=== PATIENT | female | born 1995 ===

== ENCOUNTER 2024-11-27 20:33 | Emergency (ER) | payer OTHER, SELFPAY ==
--- NOTE | 2024-11-27 | ECG_ITS ---
Test Reason : ABDOMINAL PAIN Blood Pressure : */* mmHG Vent. Rate : 71 BPM Atrial Rate : 71 BPM P-R Int : 186 ms QRS Dur : 86 ms QT Int : 382 ms P-R-T Axes : 39 59 26 degrees QTcB Int : 415 ms Normal sinus rhythm Normal ECG No previous ECGs available Referred By: Generic ED Physician Electronically Signed By: NAYELY LIU
--- NOTE | ~2024-11-27 | CT_ITS ---
CLINICAL HISTORY: R flank pain, eval for stone CT abdomen and pelvis without contrast Comparison: None provided Findings: The lung bases are clear. The patient is status post cholecystectomy. There is mild hepatosplenomegaly. No focal liver lesions are noted. There is no biliary ductal dilatation. The rest of the solid organs are unremarkable. There is no evidence of urolithiasis or obstructive uropathy. No bowel obstruction, pneumoperitoneum, or pneumatosis. There is a 2.4 cm right ovarian cyst. An IUD is present. The bones are intact. IMPRESSION: 1. There is a 2.4 cm right ovarian cyst. 2. Mild hepatosplenomegaly. 3. No evidence of urolithiasis or obstructive uropathy. This document has been electronically signed by: Scout Cuevas MD on 11/28/2024 05:14:56
[2024-11-27 21:13] VITALS: BP 137/88; PULSE 70; RESP 15; TEMP 36.7; O2SAT 100; BMI 35.3
[2024-11-27 21:57] LABS: MANUAL DIFF FLAG NO
[2024-11-27 21:58] LABS: Hematocrit 34.7 % (37.0-47.0); Hemoglobin 11.4 g/dl (12.0-16.0); Imm Gran Abs Auto 0.05 X10*3/uL (0.00-0.03); Imm Gran Pct Auto 0.5 % (0.0-0.4); Lymphocytes Absolute Auto 1.0 X10*3/uL (1.2-4.9); Mean Corpuscular HGB Conc 32.9 g/dl (31.0-35.0); Mean Corpuscular Hemoglobin 25.8 pg (27.0-33.0); Mean Corpuscular Volume 78.5 fL (80.0-98.0); NRBC Abs Auto 0.000 X10*3/uL (0.0-0.012); NRBC Pct Auto 0.0 /100WBC (0.0-0.2); Platelet Count 213 X10*3/uL (160-400); Red Blood Count 4.42 X10*6/uL (4.20-5.50); White Blood Count 10.4 X10*3/uL (4.8-10.8)
[2024-11-27 22:14] LABS: Alanine Aminotransferase 53 U/L (0-31); Albumin Level 4.5 g/dL (3.5-5.0); Alkaline Phosphatase 75 U/L (39-117); Anion Gap 13 (12-20); Aspartate Amino Transferase 48 U/L (5-31); Blood Urea Nitrogen 11 mg/dL (9-16); Calcium 9.2 mg/dL (8.4-10.2); Carbon Dioxide 26 mmol/L (22-29); Chloride 104 mmol/L (96-108); Creatinine Clr Calc Pharmacy 72.2; Estimated Glomerular Filt Rate 54; Lipase 15 U/L (8-78); Potassium 3.6 mmol/L (3.3-5.1); Sodium 139 mmol/L (135-145); Total Protein 7.5 g/dL (6.5-8.0)
--- OUTSIDE RECORDS SUMMARY | 2024-11-28 01:57 | XMS_ITS | Clinical Summary ---
Author Organization [facility] Address [address] [place] [address] Care Team Providers Care Engineering Manager Electronics Name Role Phone Unavailable Primary Care Provider Unavailabl e Social History Tobacco Use Types Packs/Day Years Used Date Smoking Tobacco: Never Assessed Comments Unknown Sex and Gender Information Value Date Recorded Sex Assigned at Not on file Legal Sex Female 1:51 PM EST Gender Identity Not on file Sexual Orientation Not on file Plan of Treatment Health Maintenance Due Date Last Done Comments DTaP,Tdap,and Td Vaccines (1 - Tdap) 2013 Hepatitis B Vaccines (1 of 3 - 19+ 3-dose series) 2013 Cervical Cancer Screening: P ap Smear 07/24/2015 COVID-19 Vaccine (1 - 2023-2 5 season) 2023 Depression Screening 04/04/2024 Influenza Vaccine (#1) 2024 HIB Vaccines Aged Out No longer eligi ble based on patient's age to complete this topic HPV Vaccines Aged Out No longer eligi ble based on patient's age to complete this topic Hepatitis A Vaccines Aged Out No long er eligible based on patient's age to complete this topic IPV Vaccines Aged Out No longer eligi ble based on patient's age to complete this topic MMR Vaccines Aged Out No longer eligi ble based on patient's age to complete this topic Meningococcal ACWY Vaccine Aged Out N o longer eligible based on patient's age to complete this topic Meningococcal B Vaccine Aged Out No l onger eligible based on patient's age to complete this topic Pneumococcal Vaccine: Pediat rics (0 to 5 Years) and At-Risk Patients (6 to 49 Years) Aged Out No longer eligible b ased on patient's age to complete this topic RSV Immunization Patients Un jacquie 20 months Aged Out No longer eligible b ased on patient's age to complete this topic Varicella Vaccines Aged Out No longer eligible based on patient's age to complete this topic
[2024-11-28 03:15] VITALS: BP 117/69; PULSE 65; RESP 16; TEMP 36.7; O2SAT 98
[2024-11-28 03:24] LABS: Appearance Urine Cloudy; Glucose Urine UA Negative (Negative); PH 7.0 (5.0-9.0); Specific Gravity - Urine 1.025 (1.005-1.025); UMIC TRIGGER UACC YES
[2024-11-28 03:39] LABS: UACC Culture Trigger YES
--- NOTE | 2024-11-28 03:53 | ED_ITS ---
HPI - Abdominal Pain General Chief Complaint: Abdominal Pain Stated Complaint: pain in gallbladder Time Seen by Provider: 11/28/24 03:51 Source: patient Mode of arrival: ambulatory Limitations: no limitations History of Present Illness ED Provider: Dr. Aishwarya Kelly HPI narrative: 29-year-old female with history of cholecystectomy, recent diagnosis of UTI currently on cefuroxime presenting with right flank pain radiating into her right upper quadrant ongoing for the last hour prior to arrival. Describes nausea but no vomiting. Denies associated fevers, bowel changes, chest pain or difficulty breathing. No cough or cold-type symptoms. Urinary symptoms are improving. No further dysuria or hematuria. Has been taking her antibiotics as prescribed. Related Data Previous Rx's ?Medication ?Instructions ?Recorded cefuroxime axetil 250 mg tablet 250 mg PO Q12H 7 days #14 tabs 11/28/24 dicyclomine 20 mg tablet 20 mg PO TID #10 tabs ondansetron 4 mg disintegrating 4 mg PO Q8H PRN nausea and 11/28/24 tablet vomiting #10 tabs Allergies Allergy/AdvReac Type Severity Reaction Status Date / Time No Known Allergies Allergy Verified 11/27/24 21:15 Review of Systems Review of Systems as per HPI, full review of systems performed and negative but for the above mentioned pertinent positives and negatives. Physical Exam ED Exam Exam: GENERAL: Ill-Appearing, appears uncomfortable. SKIN: Normal skin color for ethnicity, warm, dry, no rashes noted. HEENT:? Normocephalic, atraumatic, no stridor, dry mucous membranes, dentition intact, EOMI. NECK: Soft, supple, full ROM, midline structures nontender, no step-offs, no deformities, no lymphadenopathy. CHEST: Heart regular rhythm, no murmurs, symmetric chest rise and fall. PULMONARY: Clear to auscultation bilaterally, diminished at the bases, no labored breathing, no wheezes/rhales/rhonchi. ABDOMINAL: Soft, nondistended, R flank tenderness to palpation without guarding, positive bowel sounds in all quadrants. : Deferred. MUSCULOSKELETAL: Normal tone, full range of motion, no deformities, no peripheral edema. NEURO: Alert and oriented x3, CN II through XII intact, equal strength and sensation bilateral upper and lower extremities, no focal neurologic deficits.? PSYCHIATRIC: Flat affect, fluid speech, good eye contact and appropriate demeanor. Vital Signs: Vital Signs - 24 hr 11/27/24 21:13 11/28/24 03:15 Temperature 98.1 F 98.1 F Pulse Rate 70 65 Respiratory Rate 15 16 Blood Pressure 137/88 117/69 Pulse Oximetry 100 98 Oxygen Delivery Method Room Air Room Air BMI result Body Mass Index 35.3 Course Reevaluation(s) Reevaluation #1: Patient's urine culture resulted growing E coli that is sensitive to cephalosporins. The patient was treated with cefuroxime, no change to treatment plan necessary Time: 09:16 Medical Decision Making Medical Decision Making [facility] Narrative: Patient presented today with a chief complaint of flank pain.? Differential diagnosis is certainly broad and includes but is not limited to kidney stone, infection such as pyelonephritis, vascular pathology, among many others.? Patient is currently taking cephalosporin which her urine is sensitive to. Preliminary culture shows E coli growing. No evidence of pyelonephritis or kidney stones seen on imaging. Encouraged continued use of cefuroxime. Using shared decision making, plan for discharge home to follow-up with primary care and/or specialist. Patient understands and agrees with plan for discharge. Discharged home in stable condition. Differential Diagnosis Differential Diagnoses: The differential diagnosis associated with the presentation includes (as above) Admission/Observation Consideration of admission/observation: Escalation of care including admission/observation considered Lab Data [facility] Lab Attestation statement: I reviewed the patient's lab results. 11/27/24 21:51 11/27/24 21:51 Labs: Lab Results 11/27/24 11/28/24 Range/Units 21:51 03:16 WBC 10.4 (4.8-10.8) X10*3/uL RBC 4.42 (4.20-5.50) X10*6/uL Hgb 11.4 L (12.0-16.0) g/dl Hct 34.7 L (37.0-47.0) % MCV 78.5 L (80.0-98.0) fL MCH 25.8 L (27.0-33.0) pg MCHC 32.9 (31.0-35.0) g/dl RDW 15.9 (11.0-16.0) % Plt Count 213 (160-400) X10*3/uL MPV 10.4 (9.4-12.3) fL Immature Gran % (Auto) 0.5 H (0.0-0.4) % Neut % (Auto) 83.0 H (45-73) % Lymph % (Auto) 9.7 L (20-40) % Wirt % (Auto) 5.9 (2-11) % Eos % (Auto) 0.6 (0-4) % Baso % (Auto) 0.3 (0-2) % Lymph # (Auto) 1.0 L (1.2-4.9) X10*3/uL Wirt # (Auto) 0.6 (0.1-1.2) X10*3/uL Eos # (Auto) 0.1 (0.0-0.4) X10*3/uL Baso # (Auto) 0.0 (0.0-0.2) X10*3/uL Abs Immat Gran (auto) 0.05 H (0.00-0.03) X10*3/uL Absolute Neuts (auto) 8.7 H (2.0-8.3) x10*3/uL Absolute Nucleated RBC 0.000 (0.0-0.012) X10*3/uL Nucleated RBC % (auto) 0.0 (0.0-0.2) /100WBC Sodium 139 (135-145) mmol/L Potassium 3.6 (3.3-5.1) mmol/L Chloride 104 (96-108) mmol/L Carbon Dioxide 26 (22-29) mmol/L Anion Gap 13 (12-20) BUN 11 (9-16) mg/dL Creatinine 1.17 (0.5-1.4) mg/dL Estim Creat Clear Calc 72.2 Estimated GFR 54 Random Glucose 128 H (60-115) mg/dL Calcium 9.2 (8.4-10.2) mg/dL Total Bilirubin 0.3 (0.0-1.0) mg/dL AST 48 H (5-31) U/L ALT 53 H (0-31) U/L Alkaline Phosphatase 75 (39-117) U/L Total Protein 7.5 (6.5-8.0) g/dL Albumin 4.5 (3.5-5.0) g/dL Lipase 15 (8-78) U/L Urine Color Yellow Urine Appearance Cloudy Urine pH 7.0 (5.0-9.0) Ur Specific [place] 1.025 (1.005-1.025) Urine Protein Trace (Neg-Trace) mg/dL Urine Glucose (UA) Negative (Negative) mg/dL Urine Ketones Trace (Negative) mg/dL Urine Blood Negative (Negative) Urine Nitrite Positive H (Negative) Ur Leukocyte Esterase Trace H (Negative) Urine RBC 0-2 (0-2) /HPF Urine WBC 6-10 H (0-5) /HPF Ur Squamous Epith Cells 6-10 (0-2) /HPF Urine Bacteria 4+ (None Seen) Hyaline Casts 0-2 (0-2) /LPF Urine Test NEGATIVE (NEGATIVE) Radiology Impression Discussion of test interpretation with radiology: I have reviewed the radiologist's reading. Radiologist Impression: CT abdomen and pelvis without contrast Comparison: None provided Findings: The lung bases are clear. The patient is status post cholecystectomy. There is mild hepatosplenomegaly. No focal liver lesions are noted. There is no biliary ductal dilatation. The rest of the solid organs are unremarkable. There is no evidence of urolithiasis or obstructive uropathy. No bowel obstruction, pneumoperitoneum, or pneumatosis. There is a 2.4 cm right ovarian cyst. An IUD is present. The bones are intact. IMPRESSION: 1. There is a 2.4 cm right ovarian cyst. 2. Mild hepatosplenomegaly. 3. No evidence of urolithiasis or obstructive uropathy. This document has been electronically signed by: Scout Cuevas MD on 11/28/2024 05:14:56 External Record Review External record reviewed: Inpatient record and Prior outpatient labs Prescription Management I considered prescription management with: Pain Medication and Antibiotic Medications Administered Discontinued Medications Generic Name Dose Route Start Last Admin Trade Name Freq PRN Reason Stop Dose Admin Cefuroxime Axetil 500 mg 11/28/24 06:07 11/28/24 06:35 Cefuroxime Axetil 500 Mg Tablet PO 11/28/24 06:08 500 mg ONCE ONE Administration Diazepam 2 mg 11/28/24 04:01 11/28/24 04:07 Diazepam 2 Mg Tablet PO 11/28/24 04:02 2 mg ONCE ONE Administration Ibuprofen 600 mg 11/28/24 04:01 11/28/24 04:07 Ibuprofen 600 Mg Tablet PO 11/28/24 04:02 600 mg ONCE ONE Administration Ondansetron HCl 4 mg 11/28/24 04:01 11/28/24 04:07 Ondansetron Odt 4 Mg Tab.Tinaboaz THERESA 11/28/24 04:02 4 mg ONCE ONE Administration Discharge Plan Discharge Clinical Impression: UTI (urinary tract infection), Acute abdominal pain in right flank Patient Disposition: Home, Self-Care Instructions: Urinary Tract Infection in Women (ED) Additional Instructions: You were found to have a urinary tract infection today which can cause pain in the abdomen and flank. Take your antibiotic as prescribed until the course is completed. Do not stop this medication early if you start to feel better. Use dicyclomine for abdominal pain and bloating. Otherwise, use ibuprofen for pain as well. Use ondansetron for nausea. Return to the emergency department with any new or worsening symptoms including: Worsening pain despite medications, fevers greater than 100 degrees despite antibiotics, any new symptom that concerns you. Call 911 with any medical emergency. Follow up with your primary care doctor as soon as possible. Prescriptions: New cefuroxime axetil 250 mg tablet 250 mg PO Q12H 7 Days Qty: 14 0RF dicyclomine 20 mg tablet 20 mg PO TID Qty: 10 0RF ondansetron 4 mg tablet,disintegrating 4 mg PO Q8H PRN (Reason: nausea and vomiting) Qty: 10 0RF Stand Alone Forms: Work/School Release Interventions: ED Discharge Assessment Last Done: 11/28/24 06:39 Discharge Date/Time: 11/28/24 06:41 Print Language: Belarusian
[2024-11-28 04:41] LABS: UPreg QC Valid YES
[2024-11-28 06:00] VITALS: BP 112/54; PULSE 67; RESP 16; TEMP 36.8; O2SAT 99
[2024-11-28 06:39] VITALS: BP 112/54; PULSE 67; RESP 16; TEMP 36.8; O2SAT 99
== END 2024-11-28 06:41 | disposition home or self-care (01) ==
PROVIDERS: Emergency Provider Emergency Medicine
DX: N39.0 Urinary tract infection, site not specified (principal); R10.11 Right upper quadrant pain; R11.0 Nausea; N83.201 Unspecified ovarian cyst, right side
CPT/HCPCS: 36415; 74176; 80053; 81001; 81025; 83690; 85025; 87086; 87088; 87186; 93005; 99284

== ENCOUNTER → 2024-11-27 21:46 | Outpatient (BNV) | payer OTHER, SELFPAY | PROVIDERS: Emergency Provider Emergency Medicine; Visit Provider Internal Medicine | DX: R10.9 Unspecified abdominal pain (principal) | CPT/HCPCS: 93010 ==

== ENCOUNTER → 2024-11-28 04:01 | Outpatient (BNV) | payer OTHER, SELFPAY | PROVIDERS: Emergency Provider Emergency Medicine; Visit Provider Radiology Diagnostic Radiology | DX: N83.201 Unspecified ovarian cyst, right side (principal) | CPT/HCPCS: 74176 ==